=== PATIENT | female | born 1970 | race Hispanic/Latino ===

== ENCOUNTER 2021-07-13 05:14 | Emergency (ER) | payer BC, OTHER ==
[~2021-07-13] VITALS: Ht 154.9 cm; Wt 81.6 kg
[2021-07-13] MEDS ORDERED: 0.9%NACL 1000ML 1,000 ML IV ONE (06:30)
[2021-07-13] MEDS ORDERED: METOCLOPRAMIDE 10 MG/2 ML VIAL IVP ONE (06:30)
[2021-07-13] MEDS ORDERED: PANTOPRAZOLE 40 MG/VIAL IVP ONE (06:30)
[2021-07-13] MEDS ORDERED: DiphenhydrAMINE HCL 50 MG/ML VIAL IV ONE (06:30)
[2021-07-13] MEDS ORDERED: FAMOTIDINE 20MG VIAL IV ONE (06:30)
[2021-07-13 06:48] LABS: BASOPHILS % (AUTO) 0.4 % (0.0-5.0); EOSINOPHILS % (AUTO) 0.4 % (0.0-8.0); HEMATOCRIT 41.6 % (36-48); LYMPHOCYTES % (AUTO) 13.1 % (21.0-51.0); MEAN CORPUSCULAR VOLUME 84.4 fL (79-99); MONOCYTES % (AUTO) 6.9 % (3.0-13.0); NEUTROPHILS % (AUTO) 78.8 % (40.0-77.0); PLATELET COUNT (AUTO) 283 K/uL (130-400); RED BLOOD CELL COUNT(AUTO) 4.93 MIL/uL (4.00-5.50); RED CELL DISTRIBUTION WIDTH 14.5 % (11.0-15.5); WHITE BLOOD COUNT (AUTO) 15.4 K/uL (4.8-10.8)
[2021-07-13 07:07] LABS: ALBUMIN 3.7 g/dL (3.5-5.0); BILIRUBIN,TOTAL 0.6 mg/dL (0.2-1.0); CREATININE 0.7 mg/dL (0.5-1.5); POTASSIUM 4.5 mmol/L (3.5-5.1); TOTAL PROTEIN, SERUM 7.4 g/dL (6.0-8.3)
[2021-07-13] MEDS ORDERED: PANT40TA PO (07:39)
[2021-07-13] MEDS ORDERED: ONDA4TAB10 PO (07:39)
[2021-07-13] MEDS ORDERED: DICY20TA2 PO (07:39)
[2021-07-13 07:46] VITALS: BP 99/65
[2021-07-13 08:24] LABS: APPEARANCE,URINE Cloudy (CLEAR); BILIRUBIN,URINE Negative (NEGATIVE); COLOR,URINE Yellow (YELLOW); GLUCOSE, URINE (UA) Negative (NEGATIVE); KETONES,URINE 15 mg/dL (NEGATIVE); LEUKOCYTE ESTERASE ,URINE Trace (NEGATIVE); NITRATE,URINE Negative (NEGATIVE); OCCULT BLOOD,URINE Negative (NEGATIVE); PROTEIN,URINE Negative (NEGATIVE)
[2021-07-13 08:33] LABS: BACTERIA,URINE Moderate /HPF (None Seen); RBC,URINE 0-1 /HPF (0-1)
== END 2021-07-13 08:00 | disposition home or self-care (01) ==
LOC: EDH 05:14
DX: K29.70 Gastritis, unspecified, without bleeding (principal); Z88.6 Allergy status to analgesic agent; E65 Localized adiposity; Z79.899 Other long term (current) drug therapy
CPT/HCPCS: 36415; 76705; 80053; 81001; 83690; 84484; 85025; 87088; 96361; 96374; 96375; 99284; C9113; J1200; J2765; J3490